=== PATIENT | male | born 1950 | race Caucasian/White ===

== ENCOUNTER 2019-07-28 07:14 | Emergency (ER) | payer OTHER, BC ==
[2019-07-28 07:39] VITALS: BMI 23.6
--- NOTE | 2019-07-28 07:54 | PDOC ---
Attending Attestation - Resident Resident Name: Augustin Perez - ED Attending Attestation I have performed the following: I have examined & evaluated the patient, The case was reviewed & discussed with the resident, I agree w/resident's findings & plan, Exceptions are as noted - HPI HPI: 07/28/19 15:58 68 years old past medical history significant for abdominal aortic aneurysm dissection hyperlipidemia hypertriglyceridemia presents to the ED with atypical chest discomfort gradual in onset slight radiation to the left dull pain persistent constant no exacerbating or alleviating factors denies diaphoresis exertional component with a second - Physicial Exam PE: 07/28/19 15:58 Vitals: Triage Vital signs reviewed General Appearance: No acute distress, well nourished well developed, Head: Atraumatic, Cardiac: Regular rate and rhythym, no murmurs, no rubs, no gallops, Lungs: Clear to auscultation bilateral, good air movement bilaterally, Abdomen: Soft, non distended, normal bowel sounds, non tender to palpation Extremities: Full range of motion to all extremities, no cyanosis, clubbing, or edema Skin: Warm and dry, no rashes or lesions, no rash, no petechiae Neuro: Strength intact to all extremities, sensation intact to all extremities , gait normal Psych: Normal mood, normal affect - Medical Decision Making 07/28/19 15:59 68 years old atypical chest pain EKG demonstrates normal sinus rhythm no ST elevations no T wave inversions Given patient's history CTA ordered Case discussed with getting Have previous copy of previous CTA We will follow-up results and reassess Reevaluation no acute changes on CTA troponin negative x2 patient feels better will follow-up with cardiology as an outpatient instructed to return to ED for any severe worsening symptoms or for any concerns Findings, need for follow-up and strict return instructions discussed with patient. 07/28/19 16:56 Heart Score/ECG Review - Age Age: >/= 65
[2019-07-28 09:34] LABS: INR 0.98 (0.83-1.09); PROTHROMBIN TIME (PATIENT) 11.6 SEC (9.7-13.0)
[2019-07-28 09:36] LABS: ACTIVATED PTT 19.7 SECONDS (25.2-36.5)
--- NOTE | 2019-07-28 09:40 | PDOC ---
History of Present Illness - General Chief Complaint: Chest Pain Stated Complaint: CHEST PAIN Time Seen by Provider: 07/28/19 07:38 History Source: Patient Exam Limitations: No Limitations - History of Present Illness Initial Comments: 07/28/19 09:33 68-year-old male with a past medical history of abdominal aortic aneurysm, dissection, hyperlipidemia, hypertriglyceridemia, presenting to the ER with complaints of chest pain abdominal pain. Patient stated his chest pain yesterday , was left-sided non-radiating, he describes it as a dull pain. The pain is associated with shortness of breath, but denies nausea, vomiting, diaphoresis, lightheadedness, or an exertional component. He also endorsed palpitations that hes had for a while now. The patient also describes a right sided abdominal pain that hes had for a week. The abdominal pain is sharp, intermittent, non- radiating. He said he has not had pain like this in the past. The pain is not associated with nausea, vomiting, diarrhea, hematuria, testicular pain, penile discharge. He denies any prior abdominal surgeries. He does admit to being mildly constipated but says that that is chronic for him. Past History - Past Medical History Allergies/Adverse Reactions: Allergies Allergy/AdvReac Type Severity Reaction Status Date / Time No Known Allergies Allergy Verified 07/28/19 07:17 Home Medications: Ambulatory Orders Atorvastatin Ca [Lipitor] 10 mg PO HS 12/19/13 Fenofibrate Nanocrystallized [Tricor] 160 mg PO HS 12/19/13 Ramipril 10 mg PO 12/19/13 Ascorbic Acid [Vitamin C] 100 mg PO HS 01/26/14 Calcium Carbonate [Calcium] 500 mg PO 01/26/14 Cholecalciferol (Vitamin D3) [Vitamin D3] 1,000 unit PO 01/26/14 Docosahexanoic Acid/Epa [Fish Oil Softgel] 1 each PO 01/26/14 Multivitamins [Multivit ([facility] Formulary)] 1 tab PO HS 01/26/14 Ubidecarenone [Co Q-10 ER] 100 mg PO HS 01/26/14 Zinc Gluconate [Zinc] 30 mg PO HS 01/26/14 Famotidine [Pepcid] 40 mg PO HS 07/28/19 Anemia: Yes Asthma: No Cancer: No Cardiac Disorders: No CVA: No COPD: No CHF: No Dementia: No Diabetes: No GI Disorders: Yes (BLOOD IN STOOL) Disorders: No HTN: Yes Hypercholesterolemia: Yes Liver Disease: No Seizures: No Thyroid Disease: No - Surgical History Abdominal Surgery: No Appendectomy: No Cardiac Surgery: No Cholecystectomy: No Lung Surgery: No Neurologic Surgery: No Orthopedic Surgery: No - Immunization History Immunization Up to Date: Yes - Psycho Social/Smoking Cessation Hx Smoking History: Unknown if ever smoked Hx Alcohol Use: No Drug/Substance Use Hx: No Review of Systems - Review of Systems Able to Perform ROS?: Yes Comments:: 07/28/19 09:34 GENERAL/CONSTITUTIONAL: No fever or chills. No weakness. HEAD, EYES, EARS, NOSE AND THROAT: No change in vision. No ear pain or discharge. No sore throat. CARDIOVASCULAR: + for chest pain and palpitations. No lightheadedness. RESPIRATORY: No cough, wheezing, shortness of breath, or hemoptysis. GASTROINTESTINAL: + for abdominal pain. No nausea, vomiting, diarrhea, or constipation. GENITOURINARY: No dysuria, frequency, hematuria, or change in urination. MUSCULOSKELETAL: No joint or muscle swelling or pain. No neck or back pain. SKIN: No rash or lesions. NEUROLOGIC: No headache, numbness, tingling, focal weakness, loss of consciousness, or change in strength/sensation. Is the patient limited Pashto proficient: No *Physical Exam - Vital Signs Last Vital Signs Temp Pulse Resp BP Pulse Ox 98 F 75 16 122/73 100 07/28/19 07:30 07/28/19 07:30 07/28/19 07:30 07/28/19 07:30 07/28/19 07:30 - Physical Exam 07/28/19 09:37 GENERAL: Well developed, well nourished. Awake and alert. No acute distress. HEENT: Normocephalic, atraumatic. Hearing grossly normal. Moist mucous membranes. PERRLA, EOMI. No conjunctival pallor. Sclera are non-icteric. NECK: Supple. Full ROM. No JVD. CARDIOVASCULAR: Regular rate and rhythm. No murmurs, rubs, or gallops. PULMONARY: No evidence of respiratory distress. Lungs clear to auscultation bilaterally. No wheezing, rales, or rhonchi. ABDOMINAL: Soft. Non-tender. Non-distended. No rebound or guarding. GENITOURINARY: No CVA tenderness bilaterally. MUSCULOSKELETAL: Normal range of motion at all joints. No bony deformities or tenderness. EXTREMITIES: No cyanosis. No clubbing. No edema. No calf tenderness or swelling. SKIN: Warm and dry. Normal capillary refill. No rashes. No jaundice. NEUROLOGICAL: Alert, awake, appropriate. Cranial nerves 2-12 grossly intact. Normal speech. Gait is normal without ataxia. PSYCHIATRIC: Cooperative. Good eye contact. Appropriate mood and affect. ED Treatment Course - LABORATORY CBC & Chemistry Diagram: 07/28/19 10:40 07/28/19 14:45 - ADDITIONAL ORDERS Additional order review: 07/28/19 08:55 RBC Cancelled MCV Cancelled MCHC Cancelled RDW Cancelled MPV Cancelled Neutrophils % Cancelled Lymphocytes % Cancelled Monocytes % Cancelled Eosinophils % Cancelled Basophils % Cancelled Medical Decision Making - Medical Decision Making 07/28/19 09:38 68-year-old male with a past medical history of a vascular apathy who is presenting with left sided chest pain, pain. Patient has a history reported 7 mm AAA. Patient also has a history of a dissection of what he is unsure of the location. Will work up for ACS and AAA. Patient noted concern for multiple CAT scans that hes had in his life. Case discussed with radiology and MRA will be ordered. Patient while appearing otherwise. 07/28/19 12:30 Troponin negative x 2. Pending MRA and BMP. 07/28/19 16:23 CTAP negative for acute pathology. Old findings present. Pt nontender on repeat exam and will f/u with PCP. Discharge - Discharge Information Problems reviewed: Yes Clinical Impression/Diagnosis: Atypical chest pain Condition: Good Disposition: HOME - Admission No - Follow up/Referral Referrals: Jarocho Ortiz MD [Primary Care Provider] - - Patient Discharge Instructions Patient Printed Discharge Instructions: DI for Atypical Chest Pain Additional Instructions: Your ER visit is not complete until your follow up with your primary care physician. Please follow up with your primary care physician in 1-2 days. Please return to the ER if you have any signs or symptoms of chest pain, shortness of breath, uncontrollable fever, chills, nausea, vomiting, numbness, tingling, or weakness in any part of your body, changes in vision, or slurred speech. Please take your medications as prescribed. Please return to the ER if symptoms persist, worsen, or new symptoms arise. - Post Discharge Activity
[2019-07-28 09:54] LABS: ALBUMIN 4.3 g/dl (3.4-5.0); ALK PHOS 42 U/L (45-117); ANION GAP 3 MMOL/L (8-16); BILIRUBIN,TOTAL 0.6 mg/dL (0.2-1); BLOOD UREA NITROGEN 11.7 mg/dL (7-18); CALCIUM 9.2 mg/dL (8.5-10.1); CHLORIDE 104 mmol/L (98-107); CO2 29 mmol/L (21-32); CREATININE 1.1 mg/dL (0.55-1.3); GLUCOSE,RANDOM 93 mg/dL (74-106); MAGNESIUM 2.3 mg/dL (1.8-2.4); POTASSIUM 5.7 mmol/L (3.5-5.1); SGOT/AST 63 U/L (15-37); SGPT/ALT 25 U/L (13-61); SODIUM 136 mmol/L (136-145); TOT PROT 7.6 g/dl (6.4-8.2)
[2019-07-28 10:51] LABS: BASO % 1.6 % (0-2.0); EOS % 1.2 % (0-4.5); HEMATOCRIT 37.9 % (35.4-49); HEMOGLOBIN 12.2 GM/dL (11.7-16.9); LYMPH % 30.6 % (8-40); MCH 26.1 pg (25.7-33.7); MCHC 32.2 g/dl (32.0-35.9); MEAN CELL VOLUME 81.2 fl (80-96); MEAN PLT VOLUME 8.6 fl (7.5-11.1); MONO % 7.9 % (3.8-10.2); NEUT % 58.7 % (42.8-82.8); PLATELET COUNT 171 K/MM3 (134-434); RBC 4.67 M/mm3 (4.00-5.60); RDW 15.6 % (11.9-15.9); WHITE BLOOD COUNT 3.1 K/mm3 (4.0-10.0)
[2019-07-28 12:42] LABS: ANION GAP 6 MMOL/L (8-16); BLOOD UREA NITROGEN 11.5 mg/dL (7-18); CALCIUM 9.2 mg/dL (8.5-10.1); CHLORIDE 108 mmol/L (98-107); CO2 23 mmol/L (21-32); GLUCOSE,RANDOM 89 mg/dL (74-106); SODIUM 136 mmol/L (136-145)
[2019-07-28 13:24] LABS: POTASSIUM 6.1 mmol/L (3.5-5.1)
[2019-07-28] MEDS ORDERED: SODIUM CHLORIDE 0.9% 1000 ML INFUS.BAG IV ONE (13:39)
[2019-07-28 15:22] LABS: BLOOD UREA NITROGEN 10.1 mg/dL (7-18); CALCIUM 8.6 mg/dL (8.5-10.1); CREATININE 0.9 mg/dL (0.55-1.3); POTASSIUM 4.3 mmol/L (3.5-5.1)
[2019-07-28 17:36] VITALS: BP 118/77; PULSE 77; TEMP 97.8
--- NOTE | 2019-07-29 13:38 | EKG ---
Test Reason : Blood Pressure : / mmHG Vent. Rate : 072 BPM Atrial Rate : 072 BPM P-R Int : 124 ms QRS Dur : 094 ms QT Int : 372 ms P-R-T Axes : 032 -35 046 degrees QTc Int : 407 ms POOR DATA QUALITY, INTERPRETATION MAY BE ADVERSELY AFFECTED NORMAL SINUS RHYTHM LEFT AXIS DEVIATION ABNORMAL ECG WHEN COMPARED WITH ECG OF 10-JUN-2009 23:01, NO SIGNIFICANT CHANGE WAS FOUND Confirmed by AURA RABAGO MD ([id number]) on 07/29/2019 1:38:09 PM Referred By: Confirmed By:AURA RABAGO MD
== END 2019-07-28 17:37 | disposition home or self-care (01) ==
LOC: JER 07:14
PROC: 3E0337Z Introduction of Electrolytic and Water Balance Substance into Peripheral Vein, Percutaneous Approach (ICD-10-PCS; principal; 2019-07-28)
DX: R07.89 Other chest pain (principal); E78.00 Pure hypercholesterolemia, unspecified; I10 Essential (primary) hypertension; K92.1 Melena; I71.4 Abdominal aortic aneurysm, without rupture; E78.5 Hyperlipidemia, unspecified
CPT/HCPCS: 36415; 71275-TC; 74174-TC; 80048; 80053; 82550; 82553; 83735; 84484; 85025; 85610; 85730; 93005; 93010; 99285-25; J7030; Q9967

== ENCOUNTER 2021-02-26 04:54 | Day surgery (SDC) | payer OTHER, BC ==
[2021-02-25 13:56] VITALS: BMI 22.1
[2021-02-26 10:26] VITALS: TEMP 97.7
[2021-02-26 10:44] VITALS: PULSE 62
[2021-02-26 10:52] VITALS: BP 114/77
== END 2021-02-26 11:50 | disposition home or self-care (01) ==
LOC: JASU-ENDO 04:54
PROVIDERS: ATTEND Internal Medicine Gastroenterology
PROC: 0DJD8ZZ Inspection of Lower Intestinal Tract, Via Natural or Artificial Opening Endoscopic (ICD-10-PCS; principal; 2021-02-26 09:59)
DX: Z12.11 Encounter for screening for malignant neoplasm of colon (principal); K57.30 Diverticulosis of large intestine without perforation or abscess without bleeding; K64.8 Other hemorrhoids

== ENCOUNTER 2025-01-22 14:41 | Inpatient (IN) | payer OTHER, BC ==
[2025-01-22] MEDS ORDERED: METOPROLOL TARTRATE 5 MG/5 ML VIAL ONE (14:59)
[2025-01-22] MEDS: METOPROLOL TARTRATE 5 MG/5 ML VIAL IVPUSH ONE (15:32)
[2025-01-22 15:41] LABS: ABSOLUTE IMMATURE GRANULOCYTES 0.04 x10^3/uL (0.0-0.031); BASOPHILS # 0.03 x10^3/uL (0.01-0.08); EOSINOPHIL % 1.2 % (0.8-7.0); EOSINOPHILS # 0.04 x10^3/uL (0.04-0.54); MCHC 31.4 g/dl (32.3-36.5); MEAN CELL VOLUME 81.1 fl (79.0-92.2); MEAN PLT VOLUME 10.5 fl (9.4-12.4); MONOCYTE # 0.29 x10^3/uL (0.30-0.82); MONOCYTE % 8.5 % (5.3-12.2); RDW 15.7 % (12.2-16.6)
[2025-01-22] MEDS ORDERED: METOPROLOL TARTRATE 25 MG TABLET (FP) ONE (15:50)
[2025-01-22] MEDS: METOPROLOL TARTRATE 25 MG TABLET (FP) PO ONE ×2 (15:50→15:55)
[2025-01-22 15:59] LABS: ALK PHOS 38.0 U/L (45-117); CO2 29.0 mmol/L (21-32); CREATININE 1.0 mg/dl (0.6-1.3); GLUCOSE,RANDOM 98.0 mg/dl (74-106); SGOT/AST 39.0 U/L (15-37); SGPT/ALT 21.0 U/L (7-52); TOT PROT 7.1 g/dl (6.4-8.2)
[2025-01-22 17:46] LABS: N-TERMINAL BNP 71.1 pg/mL (0-299.9)
[2025-01-22] MEDS: RAMIPRIL 5 MG CAPSULE PO SCH (23:32)
[2025-01-22] MEDS: ATORVASTATIN CA 20 MG TABLET (FP) PO SCH (23:32)
[2025-01-23 00:04] VITALS: BMI 24.2
[2025-01-23 08:07] LABS: ABSOLUTE IMMATURE GRANULOCYTES 0.06 x10^3/uL (0.0-0.031); BASOPHILS # 0.03 x10^3/uL (0.01-0.08); EOSINOPHIL % 1.8 % (0.8-7.0); EOSINOPHILS # 0.07 x10^3/uL (0.04-0.54); MCHC 31.5 g/dl (32.3-36.5); MEAN CELL VOLUME 81.9 fl (79.0-92.2); MEAN PLT VOLUME 10.4 fl (9.4-12.4); MONOCYTE # 0.41 x10^3/uL (0.30-0.82); MONOCYTE % 10.8 % (5.3-12.2); RDW 15.7 % (12.2-16.6)
[2025-01-23 09:13] LABS: ALK PHOS 36.0 U/L (45-117); CO2 28.0 mmol/L (21-32); CREATININE 1.0 mg/dl (0.6-1.3); GLUCOSE,RANDOM 93.0 mg/dl (74-106); SGOT/AST 25.0 U/L (15-37); SGPT/ALT 16.0 U/L (7-52); TOT PROT 5.8 g/dl (6.4-8.2)
[2025-01-23] MEDS: MULTIVITAMINS (DAILY MVI) TABLET (FP) PO SCH (09:26)
[2025-01-23] MEDS: ENOXAPARIN NA (PORCINE) 40 MG/0.4 ML DISP.SYRIN SQ SCH (09:26)
[2025-01-23 21:09] VITALS: RESP 18
[2025-01-23] MEDS: FENOFIBRIC ACID 135 MG CAP PO SCH (21:34)
[2025-01-24 01:10] VITALS: TEMP 97.7
[2025-01-24 09:25] VITALS: BP 105/65; PULSE 57
== END 2025-01-24 11:20 | disposition home or self-care (01) | DRG 310 ==
LOC: FER 14:41 → FM/S 19:10 → UNDOADMIN 22:40 → FM/S 22:40
PROVIDERS: ADMIT Hospitalist
DX: R00.0 Tachycardia, unspecified (principal); I10 Essential (primary) hypertension; E78.5 Hyperlipidemia, unspecified; D64.9 Anemia, unspecified; F32.A Depression, unspecified; I71.60 Thoracoabdominal aortic aneurysm, without rupture, unspecified
CPT/HCPCS: 36415; 71045-TC-FY; 80053; 83735; 83880; 84436; 84443; 84484; 85025; 93005; 93010; 93306-TC; 93308; 99285-25